=== PATIENT | male | born 1990 | race African-American/Black ===

== ENCOUNTER 2022-08-06 10:03 | Emergency (ER) | payer MEDICAID, SELFPAY ==
[2022-08-06 10:06] VITALS: BP 130/87; PULSE 63; RESP 18; TEMP 36.7; O2SAT 99
--- NOTE | 2022-08-06 10:41 | ED.SKABFB ---
HPI - Skin/Abscess/Foreign Bdy General Chief complaint: Skin/Abscess/Foreign Body Stated complaint: finger pain, blister, redness Time Seen by Provider: 08/06/22 10:12 Source: patient Mode of arrival: ambulatory Limitations: no limitations History of Present Illness HPI narrative: This is a 31-year-old male that presents to the emergency department for right third finger pain ongoing since yesterday. Reports redness and swelling to the area. No known injuries or trauma. Denies fevers. Related Data Allergies Allergy/AdvReac Type Severity Reaction Status Date / Time No Known Allergies Allergy Verified 08/06/22 10:09 Review of Systems Review of Systems: CONSTITUTIONAL: Denies fever SKIN: Reports redness and swelling All systems reviewed & are unremarkable except as noted in HPI and below PMFSH Past Medical History Medical History (Updated 08/06/22 @ 11:13 by Rosalee Will PA-C) No active medical problems Social History Social History (Updated 08/06/22 @ 10:45 by Rosalee Will PA-C) Substance use: never Exam Narrative: GENERAL: Well-appearing, well-nourished, and in no acute distress. HEAD: Normocephalic, atraumatic. EYES: EOMI. EXTREMITIES: Normal range of motion. Right third finger with redness and swelling at the distal phalanx with fluctuance at the medial aspect of the nail SKIN: Warm, dry, no rash. NEURO: No focal deficits. Alert and oriented x3. PSYCH: Normal mood and affect Course Course Emergency Course: Patient and family educated on wound care and agree with plan Vital Signs Vital signs: Vital Signs Temperature 98.0 F 08/06/22 10:06 Pulse Rate 63 08/06/22 10:06 Respiratory Rate 18 08/06/22 10:06 Blood Pressure 130/87 08/06/22 10:06 Pulse Oximetry 99 08/06/22 10:06 Oxygen Delivery Room Air 08/06/22 10:06 Temperature 98.0 F 08/06/22 10:06 Pulse Rate 63 08/06/22 10:06 Respiratory Rate 18 08/06/22 10:06 Blood Pressure 130/87 08/06/22 10:06 Pulse Oximetry 99 08/06/22 10:06 Oxygen Delivery Room Air 08/06/22 10:06 Procedures Abscess I/D upper extremity: Date of Incision: 08/06/22 Time of Incision: 11:09 Side (if applicable): right Local Anesthetic: lidocaine 1% Amount of anesthesia used (mL): 4 Technique: incised with #11 blade Packing used?: none I&D Results: Pus and Blood MDM - Skin/Abscess/Foreign Bdy MDM Narrative Medical decision making narrative: Patient presents emergency department for paronychia to his right third finger. He did have a small abscess which was successfully drained. Will be started on oral antibiotics. Culture was sent. He was educated on further wound care. He is to follow-up with primary care provider. He was given warnings to return to the ER Differential Diagnosis Differential diagnosis: Likely abscess of skin or subcutaneous tissue and cellulitis Critical Care Time Critical Care Time Critical Care Time: No Discharge Plan Discharge Clinical Impression: Paronychia Patient Disposition: Home, Self-Care Condition: Stable Instructions: Antibiotic Form, Paronychia (ED) Additional Instructions: Return if symptoms worsen or concerns: any increase in redness, swelling, pain or fever over 101 Take antibiotics as directed. Soak the finger in mild soapy water for 15 minutes twice daily. Apply antibiotic ointment and clean dressing at twice times daily. Follow up with primary care for re-evaluation Prescriptions: New cephalexin 500 mg capsule 500 mg PO Q6H 5 Days Qty: 20 0RF Follow-up/Referrals: Shan Tong MD [Physician] - 1 Week PHYSICIAN,DOG BATHER [Primary Care Provider] -
--- NOTE | 2022-08-06 11:14 | PC.NURSE ---
report received from Alisson HOLGUIN including history and physical and plan of care
== END 2022-08-06 11:38 | disposition home or self-care (01) ==
PROVIDERS: Emergency Provider Physician Assistant
DX: L03.011 Cellulitis of right finger (principal)
CPT/HCPCS: 26010; 87070; 87147; 87181; 87186; 87205; 99283